=== PATIENT | male | born 1990 | race Caucasian/White ===

== ENCOUNTER → 2025-01-09 | Outpatient (CLI) | payer OTHER, SELFPAY ==
[2025-01-09 11:11] LABS: Urea Breath Test Negative (Negative)
[2025-01-09 12:33] LABS: % Variance 0 %; % Variance Motility 6 %; Count Side 1 12; Count Side 2 12; Motl CLS 1 75; Motl CLS 2 80; Sperm Count 12 Million (20-50)
[2025-01-09 12:34] LABS: Room Temperature 24 (20-27C (Area)); Sperm Motility 77 % (>=50)
== END | disposition home or self-care (01) ==
LOC: COPL 09:39
PROVIDERS: PCP Internal Medicine; Referring Provider Internal Medicine; Visit Provider Internal Medicine
DX: K30 Functional dyspepsia (principal); N46.8 Other male infertility
CPT/HCPCS: 83013; 83014; 89310